=== PATIENT | female | born 1980 | race Caucasian/White ===

== ENCOUNTER 2021-09-23 12:15 | Emergency (ER) | payer BC, OTHER ==
[~2021-09-23] VITALS: Ht 160 cm
== END 2021-09-23 17:44 | disposition home or self-care (01) ==
LOC: ED 12:15
DX: S80.01XA Contusion of right knee, initial encounter (principal); M25.461 Effusion, right knee; W07.XXXA Fall from chair, initial encounter; Y93.89 Activity, other specified; Y92.89 Other specified places as the place of occurrence of the external cause; Y99.8 Other external cause status